=== PATIENT | female | born 1985 | race Caucasian/White ===

== ENCOUNTER 2019-04-12 08:45 | Emergency (ER) | payer OTHER ==
[2019-04-12 08:56] VITALS: BP 121/80; PULSE 95; RESP 18; TEMP 97.9
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
[2019-04-12] MEDS ORDERED: KETOROLAC 30 MG/ML 1 ML VIAL IM STA (10:03)
== END 2019-04-12 10:54 | disposition home or self-care (01) ==
LOC: EC 08:45
DX: R51 Headache (principal); T84.018A Broken internal joint prosthesis, other site, initial encounter; H53.149 Visual discomfort, unspecified; J45.909 Unspecified asthma, uncomplicated; Z87.891 Personal history of nicotine dependence; Z88.0 Allergy status to penicillin; Z79.891 Long term (current) use of opiate analgesic; Z79.899 Other long term (current) drug therapy; Z87.828 Personal history of other (healed) physical injury and trauma; Z85.9 Personal history of malignant neoplasm, unspecified; Z87.39 Personal history of other diseases of the musculoskeletal system and connective tissue; Z96.698 Presence of other orthopedic joint implants
CPT/HCPCS: 72100; 70450; 99284; 96372; J1885

== ENCOUNTER 2019-04-13 10:00 | Emergency (ER) | payer OTHER ==
[2019-04-13 10:12] VITALS: RESP 18
[2019-04-13] MEDS ORDERED: KETOROLAC 60 MG/2 ML VIAL IM STA (11:21)
[2019-04-13] MEDS ORDERED: methylPREDNISolone SOD SUCCI 125 MG/2 ML VIAL IM STA (11:59)
[2019-04-13] MEDS ORDERED: ONDANSETRON 4 MG/2 ML VIAL IVP STA (13:33)
[2019-04-13] MEDS ORDERED: ONDANSETRON ODT 4 MG TAB PO STA (13:35)
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
[2019-04-13] MEDS ORDERED: METOCLOPRAMIDE 5 MG/ML 2 ML VIAL IVP STA (14:17)
[2019-04-13 14:41] VITALS: BP 100/74; PULSE 84; TEMP 98.5
== END 2019-04-13 14:39 | disposition home or self-care (01) ==
LOC: EC 10:00
DX: M51.16 Intervertebral disc disorders with radiculopathy, lumbar region (principal); T84.018D Broken internal joint prosthesis, other site, subsequent encounter; J45.909 Unspecified asthma, uncomplicated; F17.200 Nicotine dependence, unspecified, uncomplicated; Z88.0 Allergy status to penicillin; Z88.1 Allergy status to other antibiotic agents; Z88.8 Allergy status to other drugs, medicaments and biological substances; Z79.891 Long term (current) use of opiate analgesic; Z79.899 Other long term (current) drug therapy; Z85.9 Personal history of malignant neoplasm, unspecified; Z96.698 Presence of other orthopedic joint implants; Z53.8 Procedure and treatment not carried out for other reasons
CPT/HCPCS: 72131; 99284; 96374; 96372 ×2; J2765; J2930; J1885

== ENCOUNTER 2019-04-14 12:25 | Emergency (ER) | payer OTHER ==
[2019-04-14] MEDS ORDERED: MORPHINE SULFATE 2 MG/ML SYRINGE IM STA (13:39)
[2019-04-14] MEDS ORDERED: KETOROLAC 60 MG/2 ML VIAL IM STA (13:39)
[2019-04-14] MEDS ORDERED: ORPHENADRINE 30 MG/ML 2 ML VIAL IM STA (13:39)
[2019-04-14] MEDS ORDERED: diphenhydrAMINE 25 MG CAP PO STA (13:51)
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
[2019-04-14 14:36] VITALS: BP 106/64; PULSE 64; RESP 18; TEMP 97.5
== END 2019-04-14 14:33 | disposition home or self-care (01) ==
LOC: EC 12:25
DX: T84.098A Other mechanical complication of other internal joint prosthesis, initial encounter (principal); M51.16 Intervertebral disc disorders with radiculopathy, lumbar region; J45.909 Unspecified asthma, uncomplicated; F17.200 Nicotine dependence, unspecified, uncomplicated; Z88.0 Allergy status to penicillin; Z88.1 Allergy status to other antibiotic agents; Z88.8 Allergy status to other drugs, medicaments and biological substances; Z79.891 Long term (current) use of opiate analgesic; Z79.899 Other long term (current) drug therapy; Z85.9 Personal history of malignant neoplasm, unspecified; Z59.0 Homelessness
CPT/HCPCS: 99283; 96372 ×3; J2360; J1885; J2270

== ENCOUNTER 2019-05-12 16:59 | Emergency (ER) | payer OTHER ==
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
[2019-05-12] MEDS ORDERED: KETOROLAC 30 MG/ML 1 ML VIAL IM STA (18:47)
[2019-05-12] MEDS ORDERED: CYCLOBENZAPRINE 10 MG TAB PO STA (18:47)
[2019-05-12] MEDS ORDERED: ONDANSETRON 4 MG/2 ML VIAL IM STA (18:47)
[2019-05-12] MEDS ORDERED: LIDOCAINE 5% PATCH TOPICAL STA (18:48)
[2019-05-12 19:18] LABS: Appearance,Urine Clear (Clear); Bilirubin,Urine Negative (Negative); Blood,Urine Negative (Negative); Color,Urine Yellow; Glucose,Urine (UA) Negative (Negative); Ketones,Urine Trace (Negative); Leukocyte Esterase,Urine Negative (Negative); Nitrite,Urine Negative (Negative); Protein,Urine Negative (Negative); Specific Gravity,Urine 1.026 (1.001-1.035)
[2019-05-12 20:38] LABS: WBC 6.4 k/uL (3.8-10.6)
[2019-05-12 20:39] VITALS: RESP 18
[2019-05-12 20:39] LABS: Basophils # (A) 0.1 k/uL (0-0.2); Basophils % (A) 1 %; Eosinophils # (A) 0.8 k/uL (0-0.7); Eosinophils % (A) 13 %; HCT 40.7 % (34.0-46.0); HGB 14.6 gm/dL (11.4-16.0); Lymphocytes # (A) 1.7 k/uL (1.0-4.8); Lymphocytes % (A) 27 %; MCH 34.1 pg (25.0-35.0); MCHC 35.9 g/dL (31.0-37.0); Mean Platelet Volume 7.3; Monocytes # (A) 0.5 k/uL (0-1.0); Monocytes % (A) 8 %; Neutrophils # (A) 3.2 k/uL (1.3-7.7); Neutrophils % (A) 50 %; Platelet Count 182 k/uL (150-450); RBC 4.28 m/uL (3.80-5.40); RDW 11.7 % (11.5-15.5)
[2019-05-12 21:10] LABS: ALT 79 U/L (4-34); AST 54 U/L (14-36); African American GFR (CKD) >90 (>60 ml/min/1.73 sqM); Albumin 4.2 g/dL (3.5-5.0); Alkaline Phosphatase 43 U/L (38-126); Anion Gap 7 mmol/L; Blood Urea Nitrogen 15 mg/dL (7-17); Calcium 9.5 mg/dL (8.4-10.2); Carbon Dioxide 25 mmol/L (22-30); Chloride 108 mmol/L (98-107); Glucose 95 mg/dL (74-99); Non-African American GFR(CKD) >90 (>60 ml/min/1.73 sqM); Potassium 4.5 mmol/L (3.5-5.1); Sodium 140 mmol/L (137-145); Total Bilirubin 0.3 mg/dL (0.2-1.3); Total Protein 6.8 g/dL (6.3-8.2)
[2019-05-12 21:46] VITALS: BP 105/59; PULSE 60; TEMP 98.2
--- NOTE | 2019-05-12 22:13 | CT ---
EXAMINATION TYPE: CT abdomen pelvis w con DATE OF EXAM: 05/12/2019 COMPARISON: None HISTORY: Lower back and abdominal pain, stool incontinence CT DLP: 591.7 mGycm Automated exposure control for dose reduction was used. TECHNIQUE: Helical acquisition of images was performed from the lung bases through the pelvis. CONTRAST: Performed without Oral Contrast and with IV Contrast, patient injected with 100 mL of Isovu e 300. FINDINGS: LUNG BASES: No significant abnormality is appreciated. LIVER/GB: No significant abnormality is appreciated. PANCREAS: No significant abnormality is seen. SPLEEN: No significant abnormality is seen. ADRENALS: No significant abnormality is seen. KIDNEYS: No significant abnormality is seen. PERITONEAL CAVITY: No pneumoperitoneum. No peritoneal fluid. RETROPERITONEAL ADENOPATHY: None visualized REPRODUCTIVE ORGANS: No significant abnormality is seen URINARY BLADDER: No significant abnormality is seen. PELVIC ADENOPATHY: None visualized. OSSEOUS STRUCTURES: No significant abnormality is seen. The lumbosacral spinal hardware is intact an d there are no periprosthesis lucencies. BOWEL: No significant abnormality is seen. OTHER: No acute vascular findings. IMPRESSION: NO ACUTE PROCESS.
== END 2019-05-12 22:25 | disposition home or self-care (01) ==
LOC: EC 16:59
DX: M54.5 Low back pain (principal); G89.29 Other chronic pain; R19.7 Diarrhea, unspecified; R11.0 Nausea; R15.9 Full incontinence of feces; J45.909 Unspecified asthma, uncomplicated; F17.200 Nicotine dependence, unspecified, uncomplicated; Z79.51 Long term (current) use of inhaled steroids; Z79.899 Other long term (current) drug therapy; Z88.1 Allergy status to other antibiotic agents; Z88.0 Allergy status to penicillin; Z91.048 Other nonmedicinal substance allergy status; Z88.8 Allergy status to other drugs, medicaments and biological substances; Z87.39 Personal history of other diseases of the musculoskeletal system and connective tissue; Z91.410 Personal history of adult physical and sexual abuse
CPT/HCPCS: 36415; 80053; 85025; 81003; 81025; 74177; 99284; 96372 ×2; J2405; J1885; Q9967